=== PATIENT | female | born 1980 | race Caucasian/White ===

== ENCOUNTER 2019-08-13 17:28 | Emergency (ER) | payer SELFPAY ==
[~2019-08-13] VITALS: Ht 154.9 cm; Wt 72.7 kg
[2019-08-13] MEDS ORDERED: KETOROLAC TROMETHAMINE 30 MG/ML VIAL IVP ONE (19:00)
[2019-08-13 19:11] LABS: BASOPHILS % (AUTO) 0.4 % (0.0-2.0); HEMATOCRIT 38.4 % (36-46); HEMOGLOBIN 12.3 g/dL (12.0-16.0); LYMPHOCYTES % (AUTO) 31.1 % (22.0-44.0); MEAN CORPUSCULAR HEMOGLOBIN 26.7 pg (26.0-34.0); MEAN CORPUSCULAR HGB CONC 32.1 G/dL (31.0-37.0); MEAN CORPUSCULAR VOLUME 83 fL (80-100); MONOCYTES # (AUTO) 0.5 K/uL (0.1-1.0); NEUTROPHILS # (AUTO) 3.9 K/uL (1.8-7.7); NEUTROPHILS % (AUTO) 59.5 % (40.0-70.0); PLATELET COUNT (AUTO) 343 K/uL (150-450); RED BLOOD CELL COUNT(AUTO) 4.61 MIL/uL (4.00-5.20); RED CELL DISTRIBUTION WIDTH 14.8 % (11.5-14.5)
[2019-08-13 19:23] LABS: ANION GAP 9 mmol/L (8-16); CALCIUM, TOTAL 9.7 mg/dL (8.8-10.5); CARBON DIOXIDE 26 mmol/L (22-29); CHLORIDE 103 mmol/L (98-107); GLOMERULAR FILTR. RATE CALC > 60 mL/min (>60); GLUCOSE,RANDOM 84 mg/dL (70-110); POTASSIUM 3.4 mmol/L (3.5-5.1); SODIUM SERUM 138 mmol/L (136-145); UREA NITROGEN, BLOOD 9 mg/dL (7-18)
[2019-08-13 19:34] LABS: ALANINE AMINOTRANSFERASE 16 U/L (12-78); ALBUMIN 4.6 g/dL (3.4-5.0); ALKALINE PHOSPHATASE 53 U/L (46-116); ASPARTATE AMINOTRANSFERASE 13 U/L (15-37); BILIRUBIN,TOTAL 0.7 mg/dL (0.1-1.0); HCG,QUANTITATIVE < 1 mIU/mL (0-6); LIPASE 67 U/L (73-393); TOTAL PROTEIN, SERUM 8.2 g/dL (6.4-8.2)
[2019-08-13] MEDS ORDERED: IOVERSOL 350 MG/ML 100 ML VIAL ONE (19:45)
[2019-08-13] MEDS ORDERED: SODIUM CHLORIDE 0.9% 100 ML ONE (19:45)
[2019-08-13 20:50] VITALS: BP 128/70
== END 2019-08-13 21:13 | disposition home or self-care (01) ==
LOC: EMS 17:37
DX: K42.9 Umbilical hernia without obstruction or gangrene (principal); N83.12 Corpus luteum cyst of left ovary; Z90.49 Acquired absence of other specified parts of digestive tract
CPT/HCPCS: 36415; 74022; 74177; 80053; 81002; 83690; 84702; 85025; 96374; 99285; J1885; J7050; Q9967